=== PATIENT | male | born 1970 | race Caucasian/White ===

== ENCOUNTER 2018-01-05 13:13 | Emergency (ER) | payer OTHER ==
[2018-01-05 13:22] VITALS: RESP 18
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
[2018-01-05] MEDS ORDERED: KETOROLAC 30 MG/ML 1 ML VIAL IM STA (13:38)
--- NOTE | 2018-01-05 13:59 | XR ---
EXAMINATION TYPE: XR chest 2V DATE OF EXAM: 01/05/2018 COMPARISON: NONE HISTORY: Chest pain TECHNIQUE: Frontal and lateral views of the chest are obtained. FINDINGS: There is no focal air space opacity. No evidence for pneumothorax. No pleural effusion. The cardiac silhouette size is within normal limits. The osseous structures are grossly intact. IMPRESSION: 1. No acute cardiopulmonary process.
--- NOTE | 2018-01-05 14:51 | XR ---
EXAMINATION TYPE: XR sternum DATE OF EXAM: 01/05/2018 COMPARISON: NONE HISTORY: Pain TECHNIQUE: 2 views of the sternum are submitted. FINDINGS: No evidence for displaced or depressed sternal fracture. Retrosternal air space is well-pre served. IMPRESSION: Negative
[2018-01-05 15:54] VITALS: BP 149/99; PULSE 80; TEMP 97.2
== END 2018-01-05 15:54 | disposition home or self-care (01) ==
LOC: EC 13:13
DX: R07.2 Precordial pain (principal); S80.02XA Contusion of left knee, initial encounter; S80.01XA Contusion of right knee, initial encounter; E11.9 Type 2 diabetes mellitus without complications; I10 Essential (primary) hypertension; Z79.84 Long term (current) use of oral hypoglycemic drugs; Z79.899 Other long term (current) drug therapy; Z88.0 Allergy status to penicillin; V43.62XA Car passenger injured in collision with other type car in traffic accident, initial encounter; Y92.218 Other school as the place of occurrence of the external cause
CPT/HCPCS: 93005; 71120; 71046; 99284; 96372; J1885